=== PATIENT | female | born 1995 | race Caucasian/White ===

== ENCOUNTER 2017-04-02 23:25 | Emergency (ER) | payer OTHER ==
[~2017-04-02] VITALS: Ht 170.2 cm; Wt 65.9 kg
[2017-04-02 23:31] VITALS: BP 135/86
[2017-04-03] MEDS ORDERED: MONONESSA1 EACH PO (00:04)
[2017-04-03] MEDS ORDERED: TOPIRAMATE25 MG PO (00:04)
[2017-04-03] MEDS ORDERED: NORCO 5/3251 TABLET PO (01:55)
[2017-04-03] MEDS ORDERED: MOTRIN600 MG PO (01:55)
== END 2017-04-03 02:21 | disposition home or self-care (01) ==
LOC: EME 23:25
PROC: 2W3LX1Z Immobilization of Right Lower Extremity using Splint (ICD-10-PCS; principal; 2017-04-03)
DX: S82.831A Other fracture of upper and lower end of right fibula, initial encounter for closed fracture (principal); S93.401A Sprain of unspecified ligament of right ankle, initial encounter; W18.40XA Slipping, tripping and stumbling without falling, unspecified, initial encounter
CPT/HCPCS: 73610; 73630; 99281; 99283